=== PATIENT | female | born 1990 | race Caucasian/White ===

== ENCOUNTER → 2018-10-15 | Outpatient (CLI) | payer BC, OTHER ==
[~2018-10-15] MED LIST: IBUP800 PO; Verotin-Gr Cap1 EACH PO
== END | disposition home or self-care (01) ==
LOC: LAB SHORT 18:20 → LAB 18:20
DX: L05.01 Pilonidal cyst with abscess (principal)
CPT/HCPCS: 87070; 87075; 87205

== ENCOUNTER → 2018-12-04 | Outpatient (CLI) | payer BC, OTHER | END | disposition home or self-care (01) | LOC: LAB SHORT 09:06 → LAB 09:06 | DX: Z34.80 Encounter for supervision of other normal pregnancy, unspecified trimester (principal) | CPT/HCPCS: 87081; 87653 ==

== ENCOUNTER 2018-12-21 09:23 | Inpatient (IN) | payer BC, OTHER ==
[~2018-12-21] VITALS: Ht 162.6 cm; Wt 100.0 kg
[2018-12-21] MEDS ORDERED: VALA500 PO (12:06)
[2018-12-21 12:11] LABS: BASOPHILS ABSOLUTE AUTO 0.04 K/mm3 (0.00-0.23); BASOPHILS PERCENT AUTO 0 % (0-2); EOSINOPHILS ABSOLUTE AUTO 0.02 K/mm3 (0.00-0.68); EOSINOPHILS PERCENT AUTO 0 % (0-6); Hematocrit 35.1 % (33.0-51.0); Hemoglobin 11.7 g/dL (11.5-16.0); IMMATURE GRAN ABSOLUTE AUTO 0.03 K/mm3 (0.00-0.10); IMMATURE GRAN PERCENT AUTO 0 % (0-1); LYMPHOCYTES ABSOLUTE AUTO 1.58 K/mm3 (0.84-5.20); LYMPHOCYTES PERCENT AUTO 14 % (21-46); MONOCYTES ABSOLUTE AUTO 0.82 K/mm3 (0.16-1.47); MONOCYTES PERCENT AUTO 7 % (4-13); Mean Corpuscular HGB 28.7 pg (26.0-34.0); Mean Corpuscular HGB Conc 33.3 g/dL (31.5-36.5); Mean Corpuscular Volume 86 fL (80-100); Mean Platelet Volume 10.3 fL (9.1-12.4); NEUTROPHILS ABSOLUTE AUTO 9.17 K/mm3 (1.96-9.15); NEUTROPHILS PERCENT AUTO 79 % (41-73); Platelet Count 355 K/mm3 (150-400); RDW Coefficient Variation 12.7 % (11.7-14.2); RDW Standard Deviation 39.9 fL (35.1-46.3); Red Blood Cell Count 4.08 M/mm3 (3.80-5.20); White Blood Cell Count 11.66 K/mm3 (4.00-11.30)
[2018-12-22 05:35] LABS: Hematocrit 29.4 % (33.0-51.0); Hemoglobin 9.8 g/dL (11.5-16.0); Mean Corpuscular HGB 29.1 pg (26.0-34.0); Mean Corpuscular HGB Conc 33.3 g/dL (31.5-36.5); Mean Corpuscular Volume 87 fL (80-100); Mean Platelet Volume 10.1 fL (9.1-12.4); Platelet Count 270 K/mm3 (150-400); RDW Standard Deviation 41.1 fL (35.1-46.3); Red Blood Cell Count 3.37 M/mm3 (3.80-5.20); White Blood Cell Count 16.26 K/mm3 (4.00-11.30)
[2018-12-22] MEDS ORDERED: IBUP600 PO (10:59)
[2018-12-22] MEDS ORDERED: FERSU90EL PO (11:00)
--- NOTE | 2018-12-22 12:11 | NUR ---
2 PRESCRIPTIONS CALLED INTO [facility] PER PT'S REQUEST.
--- NOTE | 2018-12-22 16:26 | NUR ---
ASSIST GENERAL EDUCATION WITH MOM AND FOB. HAND OUT GIVEN FOR HANDS ON PUMPING AND EDUCATION SOURCE. DEMONSTRTAED NEW BEGINNINGS NAD BOOK.
--- NOTE | 2018-12-22 16:55 | NUR ---
ASSIST MOM IS AN EXPERIENCED MOM , HANDOUTF GIVEN ON LER AND HAND EXPRESSING BREAST MILK.
--- NOTE | 2018-12-22 19:04 | NUR ---
DISCHARGE INSTRUCTIONS, WRITTEN AND VERBAL, GIVEN TO PT AND . ANSWERED ALL QUESITONS AND CONCERNS. ALL PERSONAL BELONGINGS RETURNED. PT IS DISCHARGED HOME, DRIVEN BY JUAN JOSE.
== END 2018-12-22 19:10 | disposition home or self-care (01) | DRG 807 ==
LOC: BC 09:23 → OBS 09:23 → BC 11:46
PROVIDERS: ADMIT Family Medicine
PROC: 10E0XZZ Delivery of Products of Conception, External Approach (ICD-10-PCS; principal; 2018-12-21)
PROC: 0UQMXZZ Repair Vulva, External Approach (ICD-10-PCS; 2018-12-21)
PROC: 10907ZC Drainage of Amniotic Fluid, Therapeutic from Products of Conception, Via Natural or Artificial Opening (ICD-10-PCS; 2018-12-21)
PROC: 3E0R3BZ Introduction of Anesthetic Agent into Spinal Canal, Percutaneous Approach (ICD-10-PCS; 2018-12-21)
DX: O71.82 Other specified trauma to perineum and vulva (principal); Z37.0 Single live birth; Z3A.39 39 weeks gestation of pregnancy; Z88.2 Allergy status to sulfonamides
CPT/HCPCS: 36415; 51702; 85025; 85027; J1885; J2001; J2210; J2590; J3010; J7120